=== PATIENT | male | born 2005 ===

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

== ENCOUNTER 2024-04-25 22:35 | Emergency (ER) | payer BC, SELFPAY ==
[2024-04-25 22:39] VITALS: BP 135/69; PULSE 91; RESP 17; TEMP 36.9; O2SAT 99
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
[2024-04-25] MEDS: Lidocaine 2% Pres-Free 5 ML VIAL IJ (23:20)
[2024-04-25 23:49] VITALS: BP 121/54; PULSE 90; RESP 17; O2SAT 99
== END 2024-04-25 23:49 | disposition home or self-care (01) ==
LOC: ER 04-26 00:01
PROVIDERS: Emergency Provider Student in an Organized Health Care Education/Training Program
DX: S01.511A Laceration without foreign body of lip, initial encounter (principal); S02.5XXA Fracture of tooth (traumatic), initial encounter for closed fracture; W50.0XXA Accidental hit or strike by another person, initial encounter; Y93.89 Activity, other specified; Y92.018 Other place in single-family (private) house as the place of occurrence of the external cause
CPT/HCPCS: 12011; 99283